=== PATIENT | male | born 1950 | race Caucasian/White ===

== ENCOUNTER → 2017-08-29 10:47 | Outpatient (CLI) | payer MEDICARE, SELFPAY ==
[2017-08-29 13:41] LABS: Blood Urea Nitrogen 18 mg/dL (7-18); Chloride 93 mmol/L (98-107); Creatinine,Serum 0.99 mg/dL (0.70-1.30); Estimated Glomerular Filt Rate 75 ml/min (>60); GFR (African American) 91 ML/MIN (>60); Glucose 137 mg/dL (74-106); Magnesium 1.5 mg/dL (1.4-2.2); Potassium 3.4 mmoL/L (3.5-5.1); Sodium 139 mmol/L (136-145)
[2017-08-29 13:42] LABS: Basophils # 0.1 K/mm3 (0-0.2); Basophils % 0.7 % (0.1-2.0); Eosinophils # 0.2 K/mm3 (0.0-0.4); Eosinophils % 2.1 % (0.1-12.0); Hematocrit 45.1 % (42.0-52.0); Hemoglobin 14.6 g/dL (14.1-18.0); Lymphocytes # 2.5 K/mm3 (0.7-4.5); Lymphocytes % 25.2 K/mm3 (10-50); Mean Corpuscular HGB Conc 32.4 g/dL (31.8-35.4); Mean Corpuscular Hemoglobin 29.6 pg (27.0-31.2); Mean Corpuscular Volume 91.4 fl (80-94); Mean Platelet Volume 9.7 fl (7.4-10.4); Monocytes # 0.5 K/mm3 (0.1-1.0); Monocytes % 4.8 % (1.7-9.3); Neutrophils # 6.6 K/mm3 (1.8-7.8); Neutrophils % 67.2 % (37.0-80.0); Platelet Count 261 K/mm3 (142-424); Red Blood Count 4.93 M/mm3 (4.60-6.20); Red Cell Distribution Width 13.1 % (11.5-17.5); White Blood Count 9.8 K/mm3 (4.8-10.8)
[2017-08-29 13:46] LABS: Anion Gap 5.4 mEq/L (5-15)
[2017-08-29 14:05] LABS: Carbon Dioxide 44 mmol/L (21.0-32.0)
== END ==
PROVIDERS: PCP Internal Medicine Adolescent Medicine; Visit Provider Internal Medicine Adolescent Medicine
DX: I50.33 Acute on chronic diastolic (congestive) heart failure (principal)
CPT/HCPCS: 36415; 80048; 83735; 83880; 85025

== ENCOUNTER 2017-11-24 11:35 | Inpatient (IN) ==
[2017-11-24 11:56] LABS: Basophils # 0.1 K/mm3 (0-0.2); Basophils % 0.7 % (0.1-2.0); Eosinophils # 0.2 K/mm3 (0.0-0.4); Eosinophils % 1.3 % (0.1-12.0); Hematocrit 37.4 % (42.0-52.0); Lymphocytes # 2.9 K/mm3 (0.7-4.5); Lymphocytes % 24.8 K/mm3 (10-50); Mean Corpuscular HGB Conc 32.1 g/dL (31.8-35.4); Mean Corpuscular Hemoglobin 30.7 pg (27.0-31.2); Mean Corpuscular Volume 95.7 fl (80-94); Mean Platelet Volume 9.1 fl (7.4-10.4); Monocytes # 0.6 K/mm3 (0.1-1.0); Monocytes % 5.5 % (1.7-9.3); Neutrophils # 7.9 K/mm3 (1.8-7.8); Neutrophils % 67.8 % (37.0-80.0); Platelet Count 196 K/mm3 (142-424); Red Blood Count 3.91 M/mm3 (4.60-6.20); Red Cell Distribution Width 13.7 % (11.5-17.5); White Blood Count 11.7 K/mm3 (4.8-10.8)
[2017-11-24 12:21] LABS: Alanine Aminotransferase 16 U/L (12-78); Albumin/Globulin Ratio 0.8 (1.1-1.8); Alkaline Phosphatase 84 U/L (46-116); Aspartate Amino Transferase 13 U/L (15-37); Bilirubin,Total 0.3 mg/dL (0.2-1.0); Blood Urea Nitrogen 41 mg/dL (7-18); Calcium 9.2 mg/dL (8.5-10.1); Chloride 95 mmol/L (98-107); Glucose 118 mg/dL (74-106); Sodium 141 mmol/L (136-145)
--- NOTE | 2017-11-24 12:25 | Emergency Department Note ---
ED Disposition Clinical Impression: COPD exacerbation Acute respiratory failure Qualifiers: Respiratory failure complication: hypercapnia Qualified Code(s): J96.02 - Acute respiratory failure with hypercapnia Disposition: Still a Patient Condition on Discharge: Fair Referrals: Jalen Balderas MD [Primary Care Provider] - - Critical Care Critical Care Time: Yes Attestation: On 11/24/17, the high probability of a clinically significant, sudden or life threatening deterioration of the following system(s) required my full and direct attention, intervention and personal management. The time I documented below is in addition to time spent performing reported procedures but includes the following listed in this critical care notation. Total Critical Care Time: 36 Vital system(s) involved:: Respiratory Failure My critical care processes included: Assessment & monitoring of V/S, Initial and Re-exams, Data Review/Interpretation, Coordinating Care, Medication Orders and management, Documentation Medical Decision Making - Alex Inquiry Pt receiving controlled substance: No Vital Signs: 11/24/17 11:36 Temperature 98.0 F Temperature Source Oral Pulse Rate [Right Brachial] 57 L Respiratory Rate 26 H Blood Pressure [Right Arm] 119/69 Blood Pressure Mean [Right Arm] 85 Blood Pressure Source [Right Arm] Automatic Cuff Blood Pressure Position [Right Arm] Sitting 02 Sat by Pulse Oximetry 97 Oxygen Delivery Method Nasal Cannula Oxygen Flow Rate (LPM) 3 - Lab Data Lab Results 11/24/17 11:30: WBC 11.7 H, RBC 3.91 L, Hgb 12.0 L, Hct 37.4 L, MCV 95.7 H, MCH 30.7, MCHC 32.1, RDW 13.7, Plt Count 196, MPV 9.1, Neut % (Auto) 67.8, Lymph % ( Auto) 24.8, [place] % (Auto) 5.5, Eos % (Auto) 1.3, Baso % (Auto) 0.7, Neut # (Auto ) 7.9 H, Lymph # (Auto) 2.9, [place] # (Auto) 0.6, Eos # (Auto) 0.2, Baso # (Auto) 0.1 11/24/17 11:30: Sodium 141, Potassium 4.0, Chloride 95 L, Carbon Dioxide 48 H*, Anion Gap 2.0 L, BUN 41 H, Creatinine 1.35 H, Estimated Creat Clear 52, Estimated GFR 52 L, Est GFR ( Amer) 63, Glucose 118 H, Calcium 9.2, Total Bilirubin 0.3, AST 13 L, ALT 16, Alkaline Phosphatase 84, Troponin I < 0.02, Total Protein 7.0, Albumin 3.0 L, Globulin 4.0 H, Albumin/Globulin Ratio 0.8 L 11/24/17 11:30: B-Natriuretic Peptide 47 11/24/17 11:50: Specimen Source R radial, O2 % 3lpm, ABG pH 7.28 L, ABG pCO2 122.1 H, ABG pO2 126.7 H, ABG HCO3 55.7 H, ABG Total CO2 59.4 H, ABG O2 Saturation 98, ABG Base Excess 28.9 H, [place] Test Acceptable Result diagrams: 11/24/17 11:30 11/24/17 11:30 - Radiology Data #1 Image(s): Chest Image Reviewed: Yes I have reviewed radiologist's interpretation No acute process - ECG Data Tracing #1 EKG interpreted by Mannie Fry MD: Rhythm: sinus bradycardia Rate: 56 [place]: normal Ectopy: none Conduction: normal ST Segment Changes: none T Wave Changes: none Q Waves: none No evidence of acute ischemia or injury Medical Decision Narrative: 1:15 PM: I have discussed the case with Rosamaria for Dr. Balderas who agrees to admit the patient to the hospital. We discussed the patient's clinical information, including history, exam, laboratory and radiology results and ED course. Per hospital procedure, I will write temporary bridge inpatient orders on the patient. Specific orders requested by the admitting physician: Continue BiPAP, nebulizer treatments, steroids General Adult HPI - General Chief complaint: Shortness of Breath/Dyspnea Stated complaint: soa Time Seen by Provider: 11/24/17 12:15 Mode of Arrival: EMS Limitations: No Limitations Description of Symptoms (Recalled from ER Triage Doc. by RN): shortness of air for 3 days - History of Present Illness HPI narrative: Brought in by ambulance for shortness of breath. States he has had shortness of breath "for a long time" but states he is worse for the past 2-3 days. No chest pain or cough or fever. Some wheezing. States breathing treatments are not helping him much. He is on oxygen 2.5-3 L at home. He says they "checked it up today". In the emergency room he is currently on 2.5 L with saturation of 94%. States has increased swelling of his legs for several days. Former smoker. Primary care provider is Dr. Balderas. - Related Data Allergies Allergy/AdvReac Type Severity Reaction Status Date / Time No Known Allergies Allergy Unverified 07/04/17 14:56 [facility] History I have reviewed the patient's past medical history: Yes - Social History Educational Level: Completed High School Smoking Status: Former smoker Tobacco Type: cigarettes Alcohol Intake: never - Psychiatric History Expresses thoughts of harming self/others: None Suicide Plan Description: No Plan ROS Obtained: Yes All systems reviewed & no additional complaints - Constitutional Constitutional: Denies fever(s) - Cardiovascular Cardiovascular: Denies chest pain, Reports leg edema - Respiratory Respiratory: No cough, Yes dyspnea, Yes wheezing Physical Exam - General General appearance: alert, in distress (Mild respiratory distress, tachypneic) - Head Head exam: atraumatic, normocephalic, normal inspection - Eye Eye exam: Present: normal appearance, PERRL, EOMI - ENT ENT exam: Present: normal exam, normal oropharynx, mucous membranes moist, TM's normal bilaterally, normal external ear exam - Neck Neck exam: Present: normal inspection, full ROM, trachea midline. Absent: meningismus, lymphadenopathy - Chest Chest inspection: Present: normal inspection, symmetric chest wall rise. Absent : tenderness - Respiratory Respiratory exam: Present: other (Decreased breath sounds bilaterally). Absent : respiratory distress - Cardiovascular Cardiovascular exam: Present: regular rate, normal rhythm. Absent: JVD - Abdominal Exam Abdominal exam: Present: soft, normal bowel sounds. Absent: distention, tenderness, guarding - Extremities Exam Extremities exam: Present: normal inspection, full ROM, normal capillary refill. Absent: calf tenderness - Back Exam Back exam: Present: normal inspection. Absent: tenderness - Neurological Exam Neurological exam: Present: alert, oriented X3 - Psychiatric Psychiatric exam: Present: normal affect, normal mood - Skin Skin exam: Present: warm, dry, intact, normal color - Lymphatic Lymphatic Findings: no adenopathy - Other Other exam information: 1+ pitting edema of legs and feet
[2017-11-24 12:26] LABS: Carbon Dioxide 48 mmol/L (21.0-32.0)
[2017-11-24 12:34] LABS: ABG Base Excess 28.9 mmol/L (-2.4-2.3); ABG HCO3 55.7 mmhg (22.0-26.0); ABG Oxygen Saturation 98 % (90-100); ABG PH 7.28 mmol/L (7.35-7.45); ABG PO2 126.7 mmhg (80-100); ABG TCO2 59.4 mmhg (23-27)
[2017-11-24 12:38] LABS: Allen's Test ACCEPTABLE
[2017-11-24 12:39] LABS: ABG PCO2 122.1 mmhg (35.0-45.0)
--- NOTE | 2017-11-24 13:35 | Pharmacy Consult Notes ---
[facility] Pharmacy VTE Monitoring - Patient Demographics Admission date: 11/24/17 Report Date: 11/24/17 Time: 13:34 Allergies/Adverse Reactions: Patient Allergies No Known Allergies Allergy (Verified 11/24/17 13:27) Height: 1.75 m Weight: 136.078 kg Patient Problems: Current Active Problems Acute respiratory failure (Acute) COPD exacerbation (Acute) - VTE Risk Labs: VTE Related Lab Results Hgb 12.0 g/dL (14.1-18.0) L 11/24/17 11:30 Hct 37.4 % (42.0-52.0) L 11/24/17 11:30 Plt Count 196 K/mm3 (142-424) 11/24/17 11:30 BUN 41 mg/dL (7-18) H 11/24/17 11:30 Creatinine 1.35 mg/dL (0.70-1.30) H 11/24/17 11:30 Estimated Creat Clear 52 mL/min (0-300) 11/24/17 11:30 Clinical Trial Participant: No - Prophylaxis VTE Prophylaxis Ordered?: Yes Types of VTE Prophylaxis: TEDS Knee High
[2017-11-24 17:57] LABS: ABG Base Excess 23.3 mmol/L (-2.4-2.3); ABG HCO3 49.1 mmhg (22.0-26.0); ABG Oxygen Saturation 95 % (90-100); ABG PH 7.34 mmol/L (7.35-7.45); ABG PO2 76.7 mmhg (80-100)
[2017-11-24 18:02] LABS: Allen's Test ACCEPTABLE; Oxygen 36 %
[2017-11-24 18:03] LABS: ABG PCO2 94.2 mmhg (35.0-45.0)
[2017-11-25 06:41] LABS: Basophils % 0.1 % (0.1-2.0); Eosinophils % 0.3 % (0.1-12.0); Hematocrit 38.6 % (42.0-52.0); Hemoglobin 12.5 g/dL (14.1-18.0); Lymphocytes # 1.1 K/mm3 (0.7-4.5); Mean Corpuscular HGB Conc 32.4 g/dL (31.8-35.4); Mean Corpuscular Hemoglobin 30.7 pg (27.0-31.2); Mean Corpuscular Volume 94.9 fl (80-94); Mean Platelet Volume 8.9 fl (7.4-10.4); Monocytes # 0.2 K/mm3 (0.1-1.0); Monocytes % 1.7 % (1.7-9.3); Neutrophils # 12.1 K/mm3 (1.8-7.8); Neutrophils % 89.9 % (37.0-80.0); Platelet Count 204 K/mm3 (142-424); Red Blood Count 4.07 M/mm3 (4.60-6.20); Red Cell Distribution Width 13.5 % (11.5-17.5); White Blood Count 13.4 K/mm3 (4.8-10.8)
[2017-11-25 06:43] LABS: ABG Base Excess 22.9 mmol/L (-2.4-2.3); ABG HCO3 48.5 mmhg (22.0-26.0); ABG Oxygen Saturation 95 % (90-100); ABG PH 7.35 mmol/L (7.35-7.45); ABG PO2 81.2 mmhg (80-100); ABG TCO2 51.2 mmhg (23-27)
[2017-11-25 06:47] LABS: Allen's Test Acceptable; Oxygen 36% %
[2017-11-25 06:48] LABS: ABG PCO2 89.6 mmhg (35.0-45.0)
[2017-11-25 06:48] LABS: Potassium 4.2 mmoL/L (3.5-5.1)
[2017-11-25 07:15] LABS: Anion Gap -2.8 mEq/L (5-15)
--- NOTE | 2017-11-25 08:46 | History & Physical Report ---
*Admission Date: 11/24/17 *Chief complaint: Shortness of breath *History of present illness: 67 yr old male presented to the ED yesterday with increasing shortness of breath and edema. He has a long history of COPD, oxygen dependent, as well as CO2 retention but hasn't been able to tolerate CPAP in the past. He reports that he had turned his oxygen up to 3 liters at home but this did not improve his symptoms. In the ED he was found to be in hypercapnic respiratory failure with PCO2 122 and PH 7.28. He was placed on Bipap and admitted for management. BNP was unremarkable, renal function slightly elevated at 1.35. WBC also slightly elevated at 11.7K. [facility] History I have reviewed the patient's past medical history: Yes Medical History: Reports:: Congestive Heart Failure, Chronic Obstructive Pulmonary Disease (COPD), Home Oxygen, Hypertension, Peripheral Vascular Disease Denies:: Cancer, Diabetes Mellitus Type 1, Diabetes Mellitus Type 2, MRSA Laterality Cases: Bilateral: Other Other Surgeries: Yes: Cardiac Catheterization Amputation: No Fractures: No - *Social History Educational Level: Attended High School Smoking Status: Former smoker Tobacco Type: cigarettes Alcohol Intake: former Substance Use Type: former substance user, marijuana, crack/cocaine Last Used Substance: unknown Occupational Status: disabled Housing: house - Psychiatric History Expresses thoughts of harming self/others: None Suicide Plan Description: No Plan *Family Hx:: No significant family history, Non-contributory Review of Systems - Review of Systems Review of systems:: pertinent systems reviewed and negative unless documented below - Constitutional Reports fatigue - *Cardiovascular Reports shortness of breath, Reports leg swelling, Reports shortness of breath when lying down, Denies chest pain - *Respiratory Reports cough, Reports shortness of breath Meds Home Medications Medication Instructions Recorded Confirmed Type Acetaminophen with Codeine 1 tab PO TID PRN 11/24/17 11/24/17 History [Tylenol with Codeine #3 tablet] Carvedilol [Carvedilol 12.5mg Tab] 12.5 mg PO BID 11/24/17 11/24/17 History Diclofenac Potassium [Diclofenac 50 mg PO DAILY 11/24/17 11/24/17 History 50mg Tab] Furosemide [Furosemide 40MG tAB] 40 mg PO BID 11/24/17 11/24/17 History Gabapentin [Neurontin 600mg 600 mg PO TID 11/24/17 11/24/17 History tablet] Sacubitril/Valsartan [Entresto 1 tab PO BID 11/24/17 11/24/17 History 24/26mg Tablet] Spironolactone [Spironolactone 50 mg PO DAILY 11/24/17 11/24/17 History 50mg Tab] Allergies Allergy/AdvReac Type Severity Reaction Status Date / Time No Known Allergies Allergy Verified 11/24/17 13:27 Exam Vital signs and Labs for Last 24 Hours: Temp Pulse Resp BP Pulse Ox 97.6 F 73 20 128/69 93 L 11/25/17 07:15 11/25/17 07:15 11/25/17 07:15 11/25/17 07:15 11/25/17 07:15 Laboratory Results - last 24 hr 11/24/17 11:30: WBC 11.7 H, RBC 3.91 L, Hgb 12.0 L, Hct 37.4 L, MCV 95.7 H, MCH 30.7, MCHC 32.1, RDW 13.7, Plt Count 196, MPV 9.1, Neut % (Auto) 67.8, Lymph % ( Auto) 24.8, [place] % (Auto) 5.5, Eos % (Auto) 1.3, Baso % (Auto) 0.7, Neut # (Auto ) 7.9 H, Lymph # (Auto) 2.9, [place] # (Auto) 0.6, Eos # (Auto) 0.2, Baso # (Auto) 0.1 11/24/17 11:30: Sodium 141, Potassium 4.0, Chloride 95 L, Carbon Dioxide 48 H*, Anion Gap 2.0 L, BUN 41 H, Creatinine 1.35 H, Estimated Creat Clear 52, Estimated GFR 52 L, Est GFR ( Amer) 63, Glucose 118 H, Calcium 9.2, Total Bilirubin 0.3, AST 13 L, ALT 16, Alkaline Phosphatase 84, Troponin I < 0.02, Total Protein 7.0, Albumin 3.0 L, Globulin 4.0 H, Albumin/Globulin Ratio 0.8 L 11/24/17 11:30: B-Natriuretic Peptide 47 11/24/17 11:50: Specimen Source R radial, O2 % 3lpm, ABG pH 7.28 L, ABG pCO2 122.1 H, ABG pO2 126.7 H, ABG HCO3 55.7 H, ABG Total CO2 59.4 H, ABG O2 Saturation 98, ABG Base Excess 28.9 H, [place] Test Acceptable 11/24/17 18:00: Specimen Source Right radial, O2 % 36, ABG pH 7.34 L, ABG pCO2 94.2 H, ABG pO2 76.7 L, ABG HCO3 49.1 H, ABG Total CO2 52.0 H, ABG O2 Saturation 95, ABG Base Excess 23.3 H, [place] Test Acceptable 11/25/17 06:00: WBC 13.4 H, RBC 4.07 L, Hgb 12.5 L, Hct 38.6 L, MCV 94.9 H, MCH 30.7, MCHC 32.4, RDW 13.5, Plt Count 204, MPV 8.9, Neut % (Auto) 89.9 H, Lymph % (Auto) 8.0 L, [place] % (Auto) 1.7, Eos % (Auto) 0.3, Baso % (Auto) 0.1, Neut # ( Auto) 12.1 H, Lymph # (Auto) 1.1, [place] # (Auto) 0.2, Eos # (Auto) 0.0, Baso # ( Auto) 0.0 11/25/17 06:00: Sodium 140, Potassium 4.2, Chloride 95 L, Carbon Dioxide 52 H*, Anion Gap -2.8 L, BUN 46 H, Creatinine 1.05 D, Estimated Creat Clear 66, Estimated GFR 70, Est GFR ( Amer) 85 D, Glucose 153 H D 11/25/17 06:10: Specimen Source Left radial, O2 % 36%, ABG pH 7.35, ABG pCO2 89.6 H, ABG pO2 81.2, ABG HCO3 48.5 H, ABG Total CO2 51.2 H, ABG O2 Saturation 95, ABG Base Excess 22.9 H, [place] Test Acceptable I & O for Last 24 hours: Intake & Output 11/22/17 11/23/17 11/24/17 11/25/17 11:59 11:59 11:59 11:59 Intake Total 1200 / 1200 Output Total 1750 / 1750 Balance -550 / -550 Weight 300 lb 320 lb 12.361 oz Microbiology Reports for the Last 24 Hours: Microbiology 11/25/17 06:05 Sputum - Expectorated Sputum Gram Stain - Final Narrative: Pleasant male, up on side of bed in no distress. Oxygen by nasal cannula. He does have moderate conversational dyspnea. Oral membranes are moist, neck supple. Heart with RRR, distant. Lungs are clear but diffusely diminished. Abdomen is obese, soft, NT/ND, BS present and normal. Legs are edematous, left worse than right with 2+ edema, soft and without erythema. Alert and oriented x 3 with normal recall and conversation. H&P: Result - Labs Labs: Short CBC 11/24/17 11/25/17 Range/Units 11:30 06:00 WBC 11.7 H 13.4 H (4.8-10.8) K/mm3 Hgb 12.0 L 12.5 L (14.1-18.0) g/dL Hct 37.4 L 38.6 L (42.0-52.0) % Plt Count 196 204 (142-424) K/mm3 BMP 11/24/17 11/25/17 11:30 06:00 Sodium 141 140 Potassium 4.0 4.2 Chloride 95 L 95 L Carbon Dioxide 48 H* 52 H* BUN 41 H 46 H Creatinine 1.35 H 1.05 D Glucose 118 H 153 H D Calcium 9.2 Cardiac Enzymes 11/24/17 Range/Units 11:30 Troponin I < 0.02 (0.00-0.06) ng/ml Liver Function 11/24/17 Range/Units 11:30 Total Bilirubin 0.3 (0.2-1.0) mg/dL AST 13 L (15-37) U/L ALT 16 (12-78) U/L Alkaline Phosphatase 84 (46-116) U/L Albumin 3.0 L (3.4-5.0) gm/dL Assessment and Plan (1) Hypercapnic respiratory failure Current visit: Yes Status: Acute Category: Medical Code(s): J96.92 - Respiratory failure, unspecified with hypercapnia (2) Chronic combined systolic and diastolic CHF (congestive heart failure) Current visit: Yes Status: Acute Category: Medical Code(s): I50.42 - Chronic combined systolic (congestive) and diastolic (congestive) heart failure (3) AAMIR (acute kidney injury) Current visit: Yes Status: Acute Category: Medical Code(s): N17.9 - Acute kidney failure, unspecified (4) Leukocytosis Current visit: Yes Status: Acute Category: Medical Code(s): D72.829 - Elevated white blood cell count, unspecified (5) Peripheral edema Current visit: Yes Status: Acute Category: Medical Code(s): R60.9 - Edema , unspecified (6) COPD exacerbation Current visit: Yes Status: Acute Category: Medical Code(s): J44.1 - Chronic obstructive pulmonary disease with (acute) exacerbation - Assessment and plan all Dx Assessment and Plan for all problems:: ABG significantly improved this morning after using Bipap overnight. Continue Bipap while sleeping and as needed. Wean oxygen back to 2L NC as tolerated today. He had 80mg IV lasix yesterday with good results, renal function this morning is improved since admission - will repeat lasix 80mg IV today. Hold NSAIDS (taking diclofenac at home). Continue Entresto and home diuretics IV Solumedrol for COPD exacerbation. Sputum culture ordered. CXR is negative for acute process.
[2017-11-25 11:55] LABS: Lymphocytes % 3 % (10-50); Monocytes % 9 % (2-9); Neutrophils % 88 % (42-76); Total Cells Counted 100
[2017-11-25 11:56] LABS: Stomatocytes 1+
[2017-11-26 06:52] LABS: Eosinophils % 0.1 % (0.1-12.0); Hematocrit 37.4 % (42.0-52.0); Hemoglobin 12.1 g/dL (14.1-18.0); Lymphocytes # 1.4 K/mm3 (0.7-4.5); Lymphocytes % 7.5 K/mm3 (10-50); Mean Corpuscular HGB Conc 32.4 g/dL (31.8-35.4); Mean Corpuscular Hemoglobin 30.4 pg (27.0-31.2); Mean Corpuscular Volume 93.9 fl (80-94); Mean Platelet Volume 9.2 fl (7.4-10.4); Monocytes # 0.4 K/mm3 (0.1-1.0); Monocytes % 2.4 % (1.7-9.3); Neutrophils # 16.4 K/mm3 (1.8-7.8); Neutrophils % 89.9 % (37.0-80.0); Platelet Count 214 K/mm3 (142-424); Red Blood Count 3.98 M/mm3 (4.60-6.20); Red Cell Distribution Width 13.7 % (11.5-17.5); White Blood Count 18.2 K/mm3 (4.8-10.8)
[2017-11-26 07:07] LABS: Lymphocytes % 9 % (10-50); Monocytes % 1 % (2-9); Neutrophils % 80 % (42-76); Polychromasia 1+; Total Cells Counted 100
[2017-11-26 07:08] LABS: Potassium 3.9 mmoL/L (3.5-5.1)
[2017-11-26 07:12] LABS: Anion Gap 1.9 mEq/L (5-15)
--- NOTE | 2017-11-26 08:33 | Progress Note ---
Internal Medicine - PN: Subj *Date: 11/26/17 *Time: 08:32 Interval history: Overall patient feels better, slept comfortably on BiPAP. This morning has improving edema. Urinating well. Exam Vital signs and Labs for Last 24 Hours: Temp Pulse Resp BP Pulse Ox 97.6 F 85 20 111/64 94 L 11/26/17 07:22 11/26/17 07:22 11/26/17 07:22 11/26/17 07:22 11/26/17 07:22 Laboratory Results - last 24 hr 11/25/17 06:00: Total Counted 100, Neutrophils % (Manual) 88 H, Lymphocytes % ( Manual) 3 L, Monocytes % (Manual) 9, Platelet Estimate Normal, Stomatocytes 1+ 11/26/17 06:05: WBC 18.2 H D, RBC 3.98 L, Hgb 12.1 L, Hct 37.4 L, MCV 93.9, MCH 30.4, MCHC 32.4, RDW 13.7, Plt Count 214, MPV 9.2, Neut % (Auto) 89.9 H, Lymph % (Auto) 7.5 L, [place] % (Auto) 2.4, Eos % (Auto) 0.1, Baso % (Auto) 0.0 L, Neut # (Auto) 16.4 H, Lymph # (Auto) 1.4, [place] # (Auto) 0.4, Eos # (Auto) 0.0, Baso # (Auto) 0.0, Total Counted 100, Neutrophils % (Manual) 80 H, Band Neutrophils % 10.0 H, Lymphocytes % (Manual) 9 L, Monocytes % (Manual) 1 L, Platelet Estimate Normal, Polychromasia 1+ 11/26/17 06:05: Sodium 140, Potassium 3.9, Chloride 96 L, Carbon Dioxide 46 H*, Anion Gap 1.9 L, BUN 42 H, Creatinine 1.02, Estimated Creat Clear 68, Estimated GFR 72, Est GFR ( Amer) 88, Glucose 140 H I & O for Last 24 hours: Intake & Output 11/23/17 11/24/17 11/25/17 11/26/17 11:59 11:59 11:59 11:59 Intake Total 1200 / 1200 600 / 600 Output Total 1750 / 1750 1800 / 1800 Balance -550 / -550 -1200 / -1200 Weight 300 lb 320 lb 12.361 oz 323 lb 10.217 oz Microbiology Reports for the Last 24 Hours: Microbiology 11/25/17 06:05 Sputum - Expectorated Sputum Gram Stain - Final Narrative: Lungs have diffuse rhonchi but symmetric air entry. Patient's alert. Oriented. Heart rate regular. Abdomen softer. Extremities softer but still with 2+ edema to mid mooney. Assessment and Plan (1) Hypercapnic respiratory failure Current visit: Yes Status: Acute Category: Medical Code(s): J96.92 - Respiratory failure, unspecified with hypercapnia (2) Chronic combined systolic and diastolic CHF (congestive heart failure) Current visit: Yes Status: Acute Category: Medical Code(s): I50.42 - Chronic combined systolic (congestive) and diastolic (congestive) heart failure (3) AAMIR (acute kidney injury) Current visit: Yes Status: Acute Category: Medical Code(s): N17.9 - Acute kidney failure, unspecified (4) Leukocytosis Current visit: Yes Status: Acute Category: Medical Code(s): D72.829 - Elevated white blood cell count, unspecified (5) Peripheral edema Current visit: Yes Status: Acute Category: Medical Code(s): R60.9 - Edema , unspecified (6) COPD exacerbation Current visit: Yes Status: Acute Category: Medical Code(s): J44.1 - Chronic obstructive pulmonary disease with (acute) exacerbation - Assessment and plan all Dx Assessment and Plan for all problems:: Overall patient is improving. Continue BiPAP support. Continue high-dose IV Lasix. Watch kidney function carefully tomorrow. We will try to effort patient assistance so he can have BiPAP at home.
[2017-11-27 05:42] LABS: Basophils % 0.1 % (0.1-2.0); Eosinophils % 0.2 % (0.1-12.0); Hematocrit 37.3 % (42.0-52.0); Hemoglobin 12.3 g/dL (14.1-18.0); Lymphocytes # 1.3 K/mm3 (0.7-4.5); Lymphocytes % 8.1 K/mm3 (10-50); Mean Corpuscular HGB Conc 32.9 g/dL (31.8-35.4); Mean Corpuscular Hemoglobin 31.2 pg (27.0-31.2); Mean Corpuscular Volume 94.7 fl (80-94); Mean Platelet Volume 9.1 fl (7.4-10.4); Monocytes # 0.5 K/mm3 (0.1-1.0); Neutrophils # 13.7 K/mm3 (1.8-7.8); Neutrophils % 88.6 % (37.0-80.0); Platelet Count 205 K/mm3 (142-424); Red Blood Count 3.94 M/mm3 (4.60-6.20); Red Cell Distribution Width 13.6 % (11.5-17.5); White Blood Count 15.4 K/mm3 (4.8-10.8)
[2017-11-27 05:56] LABS: Albumin/Globulin Ratio 0.8 (1.1-1.8); Bilirubin,Total 0.2 mg/dL (0.2-1.0); Calcium 9.1 mg/dL (8.5-10.1); Globulin 3.8 gm/dl (1.3-3.2); Lymphocytes % 14 % (10-50); Neutrophils % 83 % (42-76); Potassium 3.4 mmoL/L (3.5-5.1); RBC Morphology Normal; Total Cells Counted 100; Total Protein,Serum 6.8 gm/dL (6.4-8.2)
[2017-11-27 05:58] LABS: Anion Gap 4.4 mEq/L (5-15)
--- NOTE | 2017-11-27 07:50 | Discharge Summary ---
General - General Admission date:: 11/24/17 Discharge date: 11/27/17 HPI HPI: 67 yr old male presented to the ED yesterday with increasing shortness of breath and edema. He has a long history of COPD, oxygen dependent, as well as CO2 retention but hasn't been able to tolerate CPAP in the past. He reports that he had turned his oxygen up to 3 liters at home but this did not improve his symptoms. In the ED he was found to be in hypercapnic respiratory failure with PCO2 122 and PH 7.28. He was placed on Bipap and admitted for management. BNP was unremarkable, renal function slightly elevated at 1.35. WBC also slightly elevated at 11.7K. Hospital Course Hospital Course: Patient was admitted, laboratory studies were done showing minimally elevated white count, and slightly elevated creatinine. Patient was diuresed and placed on BiPAP which improved his pulmonary functioning and also improved his ability to diurese and he diuresed about 6 L over the next couple of days. His creatinine also improved, coming down from 1.4 down to 1.13 which is closer to his baseline. Patient did well on BiPAP at night. Patient has been prescribed BiPAP at home after a couple of abnormal sleep studies, both in [place], [place] as well as here at [facility] several years ago but his insurance requires him to pay 20% co-pay on his BiPAP equipment and he has been unable to afford this. Sputum culture this morning shows Haemophilus influenza, sensitive to cephalosporins. Patient this morning is improved, back to his baseline, improved edema and improved pulmonary function. He will be discharged home with efforts by our care management staff to provide BiPAP at home hopefully with a lower cost. He will also be continued on his Lasix, 80 mg in the morning and 40 mg in the afternoon. Omnicef will be given for his Haemophilus bronchopneumonia. Objective Vital signs: Temp Pulse Resp BP Pulse Ox 97.7 F 78 18 136/70 86 L 11/27/17 07:22 11/27/17 07:22 11/27/17 07:22 11/27/17 07:22 11/27/17 07:22 Narrative: Patient is awake, alert, oriented 3. Anterior lung wood and posterior wood have much better air entry. Mild rhonchi. No crackles. Heart rate is regular. Exam is very difficult because of his morbid obesity and pickwickian features. Extremities are softer, continues to have edema but this is downgraded to 1+ after significant diuresis. Results Labs on day of discharge: Labs from last 24 hours 11/27/17 11/27/17 05:15 05:15 WBC 15.4 H RBC 3.94 L Hgb 12.3 L Hct 37.3 L MCV 94.7 H MCH 31.2 MCHC 32.9 RDW 13.6 Plt Count 205 MPV 9.1 Neut % (Auto) 88.6 H Lymph % (Auto) 8.1 L [place] % (Auto) 3.0 Eos % (Auto) 0.2 Baso % (Auto) 0.1 Neut # (Auto) 13.7 H Lymph # (Auto) 1.3 [place] # (Auto) 0.5 Eos # (Auto) 0.0 Baso # (Auto) 0.0 Total Counted 100 Neutrophils % (Manual) 83 H Band Neutrophils % 3.0 Lymphocytes % (Manual) 14 Platelet Estimate Normal RBC Morphology Normal Sodium 141 Potassium 3.4 L Chloride 94 L Carbon Dioxide 46 H* Anion Gap 4.4 L BUN 45 H Creatinine 1.15 Estimated Creat Clear 61 Estimated GFR 63 Est GFR ( Amer) 76 Glucose 146 H Calcium 9.1 Total Bilirubin 0.2 AST 14 L ALT 22 D Alkaline Phosphatase 89 Total Protein 6.8 Albumin 3.0 L Globulin 3.8 H Albumin/Globulin Ratio 0.8 L DS: Diagnosis - Discharge Diagnosis (1) Hypercapnic respiratory failure Status: Acute (2) Chronic combined systolic and diastolic CHF (congestive heart failure) Status: Acute (3) AAMIR (acute kidney injury) Status: Resolved (4) Leukocytosis Status: Acute (5) Peripheral edema Status: Acute (6) COPD exacerbation Status: Acute (7) Haemophilus influenzae pneumonia Status: Acute Discharge Plan - Patient Discharge Instructions ACTIVITY: Continue current activity DIET: continue same diet Patient Instructions: Chronic Obstructive Pulmonary Disease, Respiratory Failure - Follow up Plan Disposition: Home Health Service Home Medications: Home Medications Medication Instructions Recorded Confirmed Type Acetaminophen with Codeine 1 tab PO TIDP PRN 11/24/17 11/25/17 History [Tylenol with Codeine #3 tablet] Carvedilol [Carvedilol 12.5mg Tab] 12.5 mg PO BID 11/24/17 11/24/17 History Diclofenac Potassium [Diclofenac 50 mg PO DAILY 11/24/17 11/24/17 History 50mg Tab] Gabapentin [Neurontin 600mg 600 mg PO TID 11/24/17 11/24/17 History tablet] Sacubitril/Valsartan [Entresto 1 tab PO BID 11/24/17 11/24/17 History 24/26mg Tablet] Spironolactone [Spironolactone 50 mg PO BID 11/24/17 11/25/17 History 50mg Tab] Prescriptions/Medication Reconciliation: New Cefdinir [Omnicef 300mg Capsule] 300 mg PO BID #14 cap Continue Spironolactone [Spironolactone 50mg Tab] 50 mg PO BID Gabapentin [Neurontin 600mg tablet] 600 mg PO TID Diclofenac Potassium [Diclofenac 50mg Tab] 50 mg PO DAILY Carvedilol [Carvedilol 12.5mg Tab] 12.5 mg PO BID Acetaminophen with Codeine [Tylenol with Codeine #3 tablet] 1 tab PO TIDP PRN PRN Reason: PAIN Sacubitril/Valsartan [Entresto 24/26mg Tablet] 1 tab PO BID Furosemide [Furosemide 40MG tAB] 40 mg PO BID #90 tablet
== END 2017-11-27 11:35 | disposition home health service (06) ==
LOC: ER 11:35 → 2ND 13:21
PROVIDERS: ADMIT Internal Medicine Adolescent Medicine; ATTEND Internal Medicine Adolescent Medicine

== ENCOUNTER 2018-01-07 19:07 | Inpatient (IN) ==
[2018-01-07 19:32] LABS: Basophils # 0.1 K/mm3 (0-0.2); Basophils % 0.3 % (0.1-2.0); Eosinophils # 0.1 K/mm3 (0.0-0.4); Eosinophils % 0.8 % (0.1-12.0); Hematocrit 34.5 % (42.0-52.0); Hemoglobin 11.8 g/dL (14.1-18.0); Lymphocytes # 1.1 K/mm3 (0.7-4.5); Lymphocytes % 6.5 K/mm3 (10-50); Mean Corpuscular HGB Conc 34.2 g/dL (31.8-35.4); Mean Corpuscular Hemoglobin 33.4 pg (27.0-31.2); Mean Corpuscular Volume 97.9 fl (80-94); Monocytes # 0.8 K/mm3 (0.1-1.0); Monocytes % 4.7 % (1.7-9.3); Neutrophils # 14.5 K/mm3 (1.8-7.8); Neutrophils % 87.7 % (37.0-80.0); Platelet Count 236 K/mm3 (142-424); Red Blood Count 3.52 M/mm3 (4.60-6.20); Red Cell Distribution Width 13.4 % (11.5-17.5); White Blood Count 16.6 K/mm3 (4.8-10.8)
[2018-01-07 19:34] LABS: ABG HCO3 38.3 mmhg (22.0-26.0); ABG Oxygen Saturation 91 % (90-100); ABG PH 7.25 mmol/L (7.35-7.45); ABG PO2 63.5 mmhg (80-100); ABG TCO2 41.1 mmhg (23-27)
[2018-01-07 19:35] LABS: Oxygen 3 %
[2018-01-07 19:36] LABS: ABG PCO2 90.2 mmhg (35.0-45.0); Allen's Test Y
--- NOTE | 2018-01-07 19:37 | Emergency Department Note ---
ED Disposition Clinical Impression: Acute exacerbation of chronic obstructive airways disease, Overweight Congestive heart failure Qualifiers: Heart failure type: unspecified Heart failure chronicity: acute on chronic Qualified Code(s): I50.9 - Heart failure, unspecified Acute respiratory failure Qualifiers: Respiratory failure complication: hypercapnia Qualified Code(s): J96.02 - Acute respiratory failure with hypercapnia Leukocytosis Qualifiers: Leukocytosis type: unspecified Qualified Code(s): D72.829 - Elevated white blood cell count, unspecified Disposition: Admitted As Inpatient Condition on Discharge: Serious Referrals: Jalen Balderas MD [Primary Care Provider] - - Critical Care Critical Care Time: Yes Attestation: On 01/07/18, the high probability of a clinically significant, sudden or life threatening deterioration of the following system(s) required my full and direct attention, intervention and personal management. The time I documented below is in addition to time spent performing reported procedures but includes the following listed in this critical care notation. Vital system(s) involved:: Respiratory Failure My critical care processes included: Assessment & monitoring of V/S, Medication Orders and management, Documentation Medical Decision Making - Medical Records Medical records reviewed: Yes: I reviewed the patient's medical records. - Alex Inquiry Pt receiving controlled substance: No Vital Signs: 01/07/18 19:08 01/07/18 19:37 01/07/18 19:41 Temperature 99.1 F 99.9 F H Temperature Source Oral Oral Pulse Rate [Right Brachial] 77 84 66 Respiratory Rate 24 22 24 Blood Pressure [Right Arm] 97/38 97/47 89/49 Blood Pressure Mean [Right Arm] 57 63 62 Blood Pressure Source [Right Arm] Automatic Cuff Blood Pressure Position [Right Arm] Sitting 02 Sat by Pulse Oximetry 88 L 87 L 88 L Oxygen Delivery Method Nasal Cannula Nasal Cannula Nasal Cannula Oxygen Flow Rate (LPM) 3 3 3 - Lab Data Lab results reviewed: Yes: I reviewed the patient's lab results. Lab Results 01/07/18 19:25: WBC 16.6 H, RBC 3.52 L, Hgb 11.8 L, Hct 34.5 L, MCV 97.9 H, MCH 33.4 H, MCHC 34.2, RDW 13.4, Plt Count 236, MPV 8.0, Neut % (Auto) 87.7 H, Lymph % (Auto) 6.5 L, [place] % (Auto) 4.7, Eos % (Auto) 0.8, Baso % (Auto) 0.3, Neut # (Auto) 14.5 H, Lymph # (Auto) 1.1, [place] # (Auto) 0.8, Eos # (Auto) 0.1, Baso # (Auto) 0.1 01/07/18 19:25: Sodium 140, Potassium 4.3, Chloride 99, Carbon Dioxide 36 H, Anion Gap 9.3, BUN 16, Creatinine 1.02, Estimated Creat Clear 79, Estimated GFR 72, Est GFR ( Amer) 88, Glucose 146 H, Calcium 8.7, Troponin I < 0.02 01/07/18 19:25: Lactic Acid 1.4 01/07/18 19:25: Ammonia 48 01/07/18 19:33: Specimen Source L/r, O2 % 3, ABG pH 7.25 L, ABG pCO2 90.2 H, ABG pO2 63.5 L, ABG HCO3 38.3 H, ABG Total CO2 41.1 H, ABG O2 Saturation 91, ABG Base Excess 11.0 H, [place]ug[place] Test Y 01/07/18 19:38: Urine Color Yellow, Urine Appearance Clear, Urine pH 5.5, Ur Specific [place] >= 1.030, Urine Protein 1+, Urine Glucose (UA) Negative, Urine Ketones Negative, Urine Blood Trace-l, Urine Nitrate Negative, Urine Bilirubin 1 + A, Urine Urobilinogen 1.0, Ur Leukocyte Esterase Negative Result diagrams: 01/07/18 19:25 01/07/18 19:25 Orders (Tests/Meds): ED MEDICATIONS Generic Name Dose Route Start Last Admin Trade Name Freq PRN Reason Stop Dose Admin Sodium Chloride 3 ml 01/07/18 19:42 Sodium Chloride 3% 15ml [facility] 02/06/18 19:41 ONCE PRN INDUCE SPUTUM COLLECTION Discontinued Medications Generic Name Dose Route Start Last Admin Trade Name Freq PRN Reason Stop Dose Admin Albuterol/Ipratropium 3 ml 01/07/18 19:20 01/07/18 19:39 Duoneb 3ml [facility] 01/07/18 19:21 3 ml ONCE ONE Administration Furosemide 40 mg 01/07/18 19:41 01/07/18 19:45 Lasix 40mg/4ml Vial IV 01/07/18 19:42 40 mg ONCE ONE Administration Methylprednisolone Sodium Succinate 125 mg 01/07/18 19:23 01/07/18 19:39 Solu-Medrol 125mg/2ml Vial IV 01/07/18 19:24 125 mg ONCE ONE Administration ORDERS Category Date Time Status Chest XR -- portable [XR chest portable] Stat Exams 01/07/18 19:13 Taken B-Type Natriuretic Peptide Stat Lab 01/07/18 19:25 Received Complete Blood Count Auto Diff Stat Lab 01/07/18 19:25 Results Urinalysis and Microscopic Stat Lab 01/07/18 19:38 Results Blood Culture Stat Micro 01/07/18 19:18 Received Sputum Culture & Gram Stain Stat Micro 01/07/18 19:42 Ordered Arterial Blood Gas Stat RT 01/07/18 19:18 Ordered ECG Request by /Maribeth Stat Y 01/07/18 19:13 Ordered - Radiology Data #1 Image(s): Chest Image Reviewed: Yes I reviewed the patient's radiology image Preliminary Findings: Abnormal (cm prob chf ) - ECG Data Tracing #1 I reviewed this ECG and interpreted as documented below: Normal Sinus Rhythm: Yes Ischemic changes: non-specific ST-T wave changes - Physician Consults Physician Consulted: artem Reason -: Admission Resp/SOB HPI - General Chief Complaint: Shortness of Breath/Dyspnea Stated Complaint: soa Time Seen by Provider: 01/07/18 19:15 Mode of Arrival: Wheelchair Source of Information: Patient, Relative, Medical Record Limitations: Physical Limitations Description of Symptoms (Recalled from ER Triage Doc. by RN): shortness of breath over the last couple day, gotten worse today. Pt reports that he wears 2l nc at home, arrived on 6l nc. Pt is drowsy, with very labored breathing, and audible wheezes. - History of Present Illness progressive sob over the last few days with occ sputum- tolentino colored - no chest pain MD Complaint: shortness of breath Onset (ago): day(s) Severity: moderate Consistency/Duration: constant Exacerbating factors: lying flat Known history of: COPD Associated symptoms: cough Treatment prior to arrival: oxygen - Related Data Home oxygen amount: 2 liters Home Medications Medication Instructions Recorded Confirmed Acetaminophen with Codeine 1 tab PO TIDP PRN 11/24/17 01/07/18 [Tylenol with Codeine #3 tablet] Carvedilol [Carvedilol 12.5mg Tab] 12.5 mg PO BID 11/24/17 01/07/18 Diclofenac Potassium [Diclofenac 50 mg PO DAILY 11/24/17 01/07/18 50mg Tab] Gabapentin [Neurontin 600mg 600 mg PO TID 11/24/17 01/07/18 tablet] Sacubitril/Valsartan [Entresto 1 tab PO BID 11/24/17 01/07/18 24/26mg Tablet] Spironolactone [Spironolactone 50 mg PO BID 11/24/17 01/07/18 50mg Tab] Previous Rx's Medication Instructions Recorded Furosemide [Furosemide 40MG tAB] 40 mg PO BID #90 tablet 11/27/17 Allergies Allergy/AdvReac Type Severity Reaction Status Date / Time No Known Allergies Allergy Verified 11/24/17 13:27 [facility] History I have reviewed the patient's past medical history: Yes Medical History: Reports:: Congestive Heart Failure, Chronic Obstructive Pulmonary Disease (COPD), Home Oxygen, Hypertension, Peripheral Vascular Disease Denies:: Cancer, Diabetes Mellitus Type 1, Diabetes Mellitus Type 2, MRSA Laterality Cases: Bilateral: Other Other Surgeries: Yes: Cardiac Catheterization Amputation: No Fractures: No - Social History Smoking Status: Former smoker Tobacco Type: cigarettes Alcohol Intake: never Substance Use Type: former substance user, marijuana, crack/cocaine Occupational Status: disabled Housing: house - Psychiatric History Expresses thoughts of harming self/others: None Suicide Plan Description: No Plan Family Hx:: No significant family history, Non-contributory ROS Obtained: Yes All systems reviewed & no additional complaints - Constitutional Constitutional: Denies fever(s) - Eyes Eyes: Denies change in vision - ENT Ears, Nose, Mouth, and Throat: Denies sore throat - Cardiovascular Cardiovascular: Denies chest pain - Respiratory Respiratory: Yes cough, Yes dyspnea, No coughing up blood - Gastrointestinal Gastrointestingal: Denies: abdominal pain - Genitourinary Male Genitourinary: Denies hematuria - Musculoskeletal Musculoskeletal: Denies joint pain, Denies joint swelling - Integumentary/Breasts Skin/Breast: Denies rash - Neurologic Neurologic: Denies headache(s), Denies seizure-like activity Physical Exam - General General appearance: in no apparent distress, obese - Head Head exam: atraumatic - Eye Eye exam: Present: PERRL, EOMI. Absent: scleral icterus - ENT ENT exam: Present: mucous membranes dry - Neck Neck exam: Present: trachea midline - Respiratory Respiratory exam: Present: other (dec bs bilat ). Absent: respiratory distress - Cardiovascular Cardiovascular exam: Present: regular rate, systolic murmur, +S3, +S4 - Abdominal Exam Abdominal exam: Present: soft - Extremities Exam Extremities exam: Present: other (bilat 4plus edema ). Absent: calf tenderness - Neurological Exam Neurological exam: Present: oriented X3, CN II-XII intact. Absent: motor sensory deficit - Psychiatric Psychiatric exam: Present: other (lethargic) - Skin Skin exam: Absent: rash
[2018-01-07 19:44] LABS: Appearance,Urine CLEAR (Clear); Blood, Urine TRACE-L (Negative); Color,Urine YELLOW (Yellow); Glucose,Urine (UA) Negative (Negative); Ketones,Urine Negative (Negative); Leukocyte Esterase,Urine Negative (Negative); Microscopic, Urine URINE MICROSCOPIC (MICROSCOPIC); PH,Urine 5.5 (5.0-8.5); Protein,Urine 1+ (Negative); Specific Gravity, Urine >= 1.030 (1.005-1.030)
[2018-01-07 19:47] LABS: Anion Gap 9.3 mEq/L (5-15); Blood Urea Nitrogen 16 mg/dL (7-18); Calcium 8.7 mg/dL (8.5-10.1); Carbon Dioxide 36 mmol/L (21.0-32.0); Chloride 99 mmol/L (98-107); Glucose 146 mg/dL (74-106); Potassium 4.3 mmoL/L (3.5-5.1); Sodium 140 mmol/L (136-145)
[2018-01-07 19:51] LABS: Bilirubin,Urine 1+ (Negative)
[2018-01-07 19:52] LABS: Amorphous Sediment,Urine 1+ /lpf; Mucus,Urine 4+ /lpf
[2018-01-07 19:56] LABS: Eosinophils % 1 % (0-3); Lymphocytes % 6 % (10-50); Macrocytosis 1+; Monocytes % 4 % (2-9); Neutrophils % 77 % (42-76); Rouleaux 1+; Total Cells Counted 100
[2018-01-08 04:30] LABS: Hematocrit 35.7 % (42.0-52.0); Hemoglobin 10.9 g/dL (14.1-18.0); Mean Corpuscular HGB Conc 30.4 g/dL (31.8-35.4); Mean Corpuscular Hemoglobin 30.2 pg (27.0-31.2); Mean Corpuscular Volume 99.1 fl (80-94); White Blood Count 18.9 K/mm3 (4.8-10.8)
[2018-01-08 04:31] LABS: Eosinophils # 0.1 K/mm3 (0.0-0.4); Eosinophils % 0.4 % (0.1-12.0); Lymphocytes # 0.9 K/mm3 (0.7-4.5); Lymphocytes % 4.6 K/mm3 (10-50); Mean Platelet Volume 8.3 fl (7.4-10.4); Monocytes # 0.3 K/mm3 (0.1-1.0); Monocytes % 1.3 % (1.7-9.3); Neutrophils # 17.8 K/mm3 (1.8-7.8); Neutrophils % 93.7 % (37.0-80.0); Platelet Count 218 K/mm3 (142-424); Red Cell Distribution Width 13.3 % (11.5-17.5)
[2018-01-08 04:46] LABS: Anion Gap 5.5 mEq/L (5-15); Blood Urea Nitrogen 22 mg/dL (7-18); Calcium 8.5 mg/dL (8.5-10.1); Carbon Dioxide 35 mmol/L (21.0-32.0); Chloride 100 mmol/L (98-107); Glucose 160 mg/dL (74-106); Potassium 4.5 mmoL/L (3.5-5.1); Sodium 136 mmol/L (136-145)
[2018-01-08 04:50] LABS: Tobramycin,Random 10.2 ug/ml
[2018-01-08 04:57] LABS: Lymphocytes % 6 % (10-50); Macrocytosis 1+; Monocytes % 1 % (2-9); Neutrophils % 77 % (42-76); Rouleaux 1+; Total Cells Counted 100
[2018-01-08 06:24] LABS: ABG Base Excess 9.8 mmol/L (-2.4-2.3); ABG HCO3 37.3 mmhg (22.0-26.0); ABG Oxygen Saturation 95 % (90-100); ABG PH 7.23 mmol/L (7.35-7.45); ABG PO2 79.7 mmhg (80-100)
[2018-01-08 06:25] LABS: Oxygen 40 %; Tidal Volume 869
[2018-01-08 06:26] LABS: Allen's Test UNABLE
[2018-01-08 06:28] LABS: ABG PCO2 90.2 mmhg (35.0-45.0)
--- NOTE | 2018-01-08 08:08 | Pharmacy Consult Notes ---
[facility] Pharmacy VTE Monitoring - Patient Demographics Admission date: 01/07/18 Report Date: 01/08/18 Time: 08:08 Allergies/Adverse Reactions: Patient Allergies No Known Allergies Allergy (Verified 01/07/18 21:07) Height: 1.88 m Weight: 151.216 kg Patient Problems: Current Active Problems Acute respiratory failure (Acute) Leukocytosis (Acute) Acute exacerbation of chronic obstructive airways disease (Acute) Congestive heart failure (Acute) Overweight (Acute) - VTE Risk Labs: VTE Related Lab Results Hgb 10.9 g/dL (14.1-18.0) L 01/08/18 04:10 Hct 35.7 % (42.0-52.0) L 01/08/18 04:10 Plt Count 218 K/mm3 (142-424) 01/08/18 04:10 BUN 22 mg/dL (7-18) H D 01/08/18 04:10 Creatinine 1.59 mg/dL (0.70-1.30) H D 01/08/18 04:10 Estimated Creat Clear 51 mL/min (0-300) 01/08/18 04:10 Was VTE Risk Assessment Performed: Yes VTE Score: 6 VTE Risk Level: Moderate Risk - Prophylaxis VTE Prophylaxis Ordered?: Yes Types of VTE Prophylaxis: TEDS Knee High Location of Applied Device: Bilateral Lower Extremeties - VTE Diagnosis Confirmed Treatment or plan recommended: Continue Current Treatment
--- NOTE | 2018-01-08 08:27 | History & Physical Report ---
*Admission Date: 01/07/18 *Chief complaint: Shortness of air and swelling *History of present illness: 67-year-old white male with long history of COPD, significant diastolic CHF, hypercapnia with chronic respiratory failure and CO2 retention, who has been prescribed BiPAP in the past but has refused this because of the cost of the BiPAP device through his insurance co-pay. Over the past couple of months he has been under the care of home health agency and they have under my direction increased his dietary P as well oxygen therapy at home with minimal improvement in his pulmonary and pedal edema symptoms. Brought to the emergency department yesterday where he was found to have respiratory acidosis with hypercapnia, relative hypoxia and edema in his feet as well as breathlessness and pickwickian features. Interestingly his creatinine was normal. He was admitted to stepdown unit for BiPAP therapy, higher dose Lasix and close cardiac and pulmonary monitoring. [facility] History I have reviewed the patient's past medical history: Yes Medical History: Reports:: Congestive Heart Failure (Diastolic dysfunction with fairly preserved ejection fraction), Chronic Obstructive Pulmonary Disease (COPD ), Home Oxygen, Hypertension, Peripheral Vascular Disease Denies:: Cancer, Diabetes Mellitus Type 1, Diabetes Mellitus Type 2, MRSA Other Medical History: Reports: Liver Disease Comment: Left heart cath done 5 months ago with fairly clear coronary arteries, significant diastolic dysfunction but fairly preserved ejection fraction of 40- 45% range. Laterality Cases: Left: ACL Repair, Other, Bilateral: Carpal Tunnel Release Other Surgeries: Yes: Cardiac Catheterization Amputation: No Fractures: No - *Social History Smoking Status: Former smoker Tobacco Type: cigarettes Alcohol Intake: former Substance Use Type: former substance user, marijuana, crack/cocaine Occupational Status: disabled Housing: house Household Members: children - Psychiatric History Expresses thoughts of harming self/others: None Suicide Plan Description: No Plan *Family Hx:: Cancer Review of Systems - Review of Systems Review of systems:: pertinent systems reviewed and negative unless documented below - Constitutional Reports daytime sleepiness, Reports lack of energy, Denies increased appetite - Eyes Denies blind spots, Denies blurry vision - *Cardiovascular Reports shortness of breath, Reports shortness of breath with activity, Reports leg swelling, Reports shortness of breath when lying down, Denies chest pain, Denies chest pain at rest, Denies irregular heart rhythm - *Respiratory Reports cough, Reports shortness of breath, Reports shortness of breath with activity, Denies change in phlegm color, Denies chest congestion - *Gastrointestinal Denies abdominal pain, Denies belching, Denies bloating - *Genitourinary Denies difficulty urinating - *Musculoskeletal Reports abnormal walking, Reports back pain, Reports joint swelling, Reports limited joint movement, Reports body aches, Reports neck pain - *Neurologic Denies headache(s), Denies seizure-like activity Meds Home Medications Medication Instructions Recorded Confirmed Type Acetaminophen with Codeine 1 tab PO TIDP PRN 11/24/17 01/07/18 History [Tylenol with Codeine #3 tablet] Carvedilol [Carvedilol 12.5mg Tab] 12.5 mg PO BID 11/24/17 01/07/18 History Diclofenac Potassium [Diclofenac 50 mg PO DAILY 11/24/17 01/07/18 History 50mg Tab] Gabapentin [Neurontin 600mg 600 mg PO TID 11/24/17 01/07/18 History tablet] Sacubitril/Valsartan [Entresto 1 tab PO BID 11/24/17 01/07/18 History 24/26mg Tablet] Spironolactone [Spironolactone 50 mg PO BID 11/24/17 01/07/18 History 50mg Tab] Allergies Allergy/AdvReac Type Severity Reaction Status Date / Time No Known Allergies Allergy Verified 01/07/18 21:07 Exam Vital signs and Labs for Last 24 Hours: Temp Pulse Resp BP Pulse Ox 97.8 F 66 20 112/51 96 01/08/18 04:19 01/08/18 06:00 01/08/18 00:00 01/08/18 06:00 01/08/18 06:00 Laboratory Results - last 24 hr 01/07/18 19:25: WBC 16.6 H, RBC 3.52 L, Hgb 11.8 L, Hct 34.5 L, MCV 97.9 H, MCH 33.4 H, MCHC 34.2, RDW 13.4, Plt Count 236, MPV 8.0, Neut % (Auto) 87.7 H, Lymph % (Auto) 6.5 L, [place] % (Auto) 4.7, Eos % (Auto) 0.8, Baso % (Auto) 0.3, Neut # (Auto) 14.5 H, Lymph # (Auto) 1.1, [place] # (Auto) 0.8, Eos # (Auto) 0.1, Baso # (Auto) 0.1, Total Counted 100, Neutrophils % (Manual) 77 H, Band Neutrophils % 12.0 H, Lymphocytes % (Manual) 6 L, Monocytes % (Manual) 4, Eosinophils % (Manual) 1, Platelet Estimate Normal, Macrocytosis 1+, Rouleaux 1+ 01/07/18 19:25: Sodium 140, Potassium 4.3, Chloride 99, Carbon Dioxide 36 H, Anion Gap 9.3, BUN 16, Creatinine 1.02, Estimated Creat Clear 79, Estimated GFR 72, Est GFR ( Amer) 88, Glucose 146 H, Calcium 8.7, Troponin I < 0.02 01/07/18 19:25: B-Natriuretic Peptide 117 H 01/07/18 19:25: Lactic Acid 1.4 01/07/18 19:25: Ammonia 48 01/07/18 19:33: Specimen Source L/r, O2 % 3, ABG pH 7.25 L, ABG pCO2 90.2 H, ABG pO2 63.5 L, ABG HCO3 38.3 H, ABG Total CO2 41.1 H, ABG O2 Saturation 91, ABG Base Excess 11.0 H, [place] Test Y 01/07/18 19:38: Urine Color Yellow, Urine Appearance Clear, Urine pH 5.5, Ur Specific [place] >= 1.030, Urine Protein 1+, Urine Glucose (UA) Negative, Urine Ketones Negative, Urine Blood Trace-l, Urine Nitrate Negative, Urine Bilirubin 1 + A, Urine Urobilinogen 1.0, Ur Leukocyte Esterase Negative, Urine RBC 3-5, Urine WBC 3-5, Amorphous Sediment 1+, Hyaline Casts 5-10, Urine Mucus 4+ 01/07/18 22:30: Troponin I < 0.02 01/08/18 01:20: Troponin I < 0.02 01/08/18 04:10: Sodium 136, Potassium 4.5, Chloride 100, Carbon Dioxide 35 H, Anion Gap 5.5, BUN 22 H D, Creatinine 1.59 H D, Estimated Creat Clear 51, Estimated GFR 43 L, Est GFR ( Amer) 52 L D, Glucose 160 H, Calcium 8.5, Troponin I < 0.02, Random Tobramycin 10.2 01/08/18 04:10: WBC 18.9 H, RBC 3.60 L, Hgb 10.9 L, Hct 35.7 L, MCV 99.1 H, MCH 30.2, MCHC 30.4 L, RDW 13.3, Plt Count 218, MPV 8.3, Neut % (Auto) 93.7 H, Lymph % (Auto) 4.6 L, [place] % (Auto) 1.3 L, Eos % (Auto) 0.4, Baso % (Auto) 0.0 L , Neut # (Auto) 17.8 H, Lymph # (Auto) 0.9, [place] # (Auto) 0.3, Eos # (Auto) 0.1 , Baso # (Auto) 0.0, Total Counted 100, Neutrophils % (Manual) 77 H, Band Neutrophils % 16.0 H, Lymphocytes % (Manual) 6 L, Monocytes % (Manual) 1 L, Platelet Estimate Normal, Macrocytosis 1+, [place] 1+ 01/08/18 06:00: Specimen Source Right radial, O2 % 40, ABG pH 7.23 L*, ABG pCO2 90.2 H, ABG pO2 79.7 L, ABG HCO3 37.3 H, ABG Total CO2 40.0 H, ABG O2 Saturation 95, ABG Base Excess 9.8 H, Ref[place] Test Unable, Vent Rate 20, Tidal Volume 869 I & O for Last 24 hours: Intake & Output 01/05/18 01/06/18 01/07/18 01/08/18 11:59 11:59 11:59 11:59 Output Total 95 / 95 Balance -95 / -95 Weight 333 lb 6 oz Narrative: Patient on BiPAP, fairly comfortable with normal heart rate and blood pressure. His edema in his feet is actually better over his baseline admissions. Lungs have diminished air movement and rhonchi throughout his lung wood. Exam is difficult because of his significant obesity and body habitus. Heart rate is regular. Abdomen is protuberant and swollen. No pitting of the abdominal wall. Able to move his arms and legs symmetrically. H&P: Result - Labs Labs: Short CBC 01/07/18 01/08/18 Range/Units 19:25 04:10 WBC 16.6 H 18.9 H (4.8-10.8) K/mm3 Hgb 11.8 L 10.9 L (14.1-18.0) g/dL Hct 34.5 L 35.7 L (42.0-52.0) % Plt Count 236 218 (142-424) K/mm3 BMP 01/07/18 01/08/18 19:25 04:10 Sodium 140 136 Potassium 4.3 4.5 Chloride 99 100 Carbon Dioxide 36 H 35 H BUN 16 22 H D Creatinine 1.02 1.59 H D Glucose 146 H 160 H Calcium 8.7 8.5 Cardiac Enzymes 01/07/18 01/07/18 01/08/18 Range/Units 19:25 22:30 01:20 Troponin I < 0.02 < 0.02 < 0.02 (0.00-0.06) ng/ml 01/08/18 Range/Units 04:10 Troponin I < 0.02 (0.00-0.06) ng/ml Urine 01/07/18 Range/Units 19:38 Urine Color Yellow (Yellow) Urine Appearance Clear (Clear) Urine pH 5.5 (5.0-8.5) Ur Specific [place] >= 1.030 (1.005-1.030) Urine Protein 1+ (Negative) Urine Glucose (UA) Negative (Negative) Assessment and Plan (1) Acute exacerbation of chronic obstructive airways disease Current visit: Yes Status: Acute Category: Medical Code(s): J44.1 - Chronic obstructive pulmonary disease with (acute) exacerbation Broad-spectrum antibiotics given previous Haemophilus influenza infection and high risk of colonization, Pseudomonas coverage. (2) Acute respiratory failure Current visit: Yes Status: Acute Qualifiers: Respiratory failure complication: hypercapnia Qualified Code(s): J96.02 - Acute respiratory failure with hypercapnia Category: Medical Code(s): J96.00 - Acute respiratory failure, unspecified whether with hypoxia or hypercapnia Currently on BiPAP. Follow closely. Patient's blood gas has not really improved much. (3) Congestive heart failure Current visit: Yes Status: Acute Qualifiers: Heart failure type: unspecified Heart failure chronicity: acute on chronic Qualified Code(s): I50.9 - Heart failure, unspecified Category: Medical Code(s): I50.9 - Heart failure, unspecified Repeat echocardiogram today. High-dose Lasix. (4) COPD exacerbation Current visit: No Status: Acute Category: Medical Code(s): J44.1 - Chronic obstructive pulmonary disease with (acute) exacerbation (5) Chronic combined systolic and diastolic CHF (congestive heart failure) Current visit: No Status: Acute Category: Medical Code(s): I50.42 - Chronic combined systolic (congestive) and diastolic (congestive) heart failure Overall patient's disease burden is significant. If patient does not respond to aggressive Lasix therapy, BiPAP and possible medicine adjustments based on echocardiogram reading would consider hospice referral.
--- NOTE | 2018-01-08 15:58 | Pharmacy Consult Notes ---
- Pharmacy Consult Date: 01/08/18 Time: 15:52 Referring provider: DR. MARIE Reason for Consult:: TOBRAMYCIN DOSING AND LEVELS Allergies and ADEs:: Allergies Allergy/AdvReac Type Severity Reaction Status Date / Time No Known Allergies Allergy Verified 01/07/18 21:07 Home Medications:: Home Medications Medication Instructions Recorded Confirmed Type Acetaminophen with Codeine 2 tab PO TIDP PRN 11/24/17 01/08/18 History [Tylenol with Codeine #3 tablet] Carvedilol [Carvedilol 12.5mg Tab] 12.5 mg PO BID 11/24/17 01/07/18 History Diclofenac Potassium [Diclofenac 50 mg PO BID 11/24/17 01/08/18 History 50mg Tab] Gabapentin [Neurontin 600mg 600 mg PO TID 11/24/17 01/07/18 History tablet] Sacubitril/Valsartan [Entresto 1 tab PO BID 11/24/17 01/07/18 History 24/26mg Tablet] Budesonide/Formoterol Fumarate 2 puffs INHALATION BID 01/08/18 01/08/18 History [Symbicort 160-4.5 Mcg Inhaler] Spironolactone [Aldactone 50mg Tab] 50 mg PO BID 01/08/18 01/08/18 History Height: 1.88 m Weight: 151.216 kg Laboratory Results:: Laboratory Results - last 24 hr 01/07/18 19:25: WBC 16.6 H, RBC 3.52 L, Hgb 11.8 L, Hct 34.5 L, MCV 97.9 H, MCH 33.4 H, MCHC 34.2, RDW 13.4, Plt Count 236, MPV 8.0, Neut % (Auto) 87.7 H, Lymph % (Auto) 6.5 L, [place] % (Auto) 4.7, Eos % (Auto) 0.8, Baso % (Auto) 0.3, Neut # (Auto) 14.5 H, Lymph # (Auto) 1.1, [place] # (Auto) 0.8, Eos # (Auto) 0.1, Baso # (Auto) 0.1, Total Counted 100, Neutrophils % (Manual) 77 H, Band Neutrophils % 12.0 H, Lymphocytes % (Manual) 6 L, Monocytes % (Manual) 4, Eosinophils % (Manual) 1, Platelet Estimate Normal, Macrocytosis 1+, Rouleaux 1+ 01/07/18 19:25: Sodium 140, Potassium 4.3, Chloride 99, Carbon Dioxide 36 H, Anion Gap 9.3, BUN 16, Creatinine 1.02, Estimated Creat Clear 79, Estimated GFR 72, Est GFR ( Amer) 88, Glucose 146 H, Calcium 8.7, Troponin I < 0.02 01/07/18 19:25: B-Natriuretic Peptide 117 H 01/07/18 19:25: Lactic Acid 1.4 01/07/18 19:25: Ammonia 48 01/07/18 19:33: Specimen Source L/r, O2 % 3, ABG pH 7.25 L, ABG pCO2 90.2 H, ABG pO2 63.5 L, ABG HCO3 38.3 H, ABG Total CO2 41.1 H, ABG O2 Saturation 91, ABG Base Excess 11.0 H, Reufgio Test Y 01/07/18 19:38: Urine Color Yellow, Urine Appearance Clear, Urine pH 5.5, Ur Specific [place] >= 1.030, Urine Protein 1+, Urine Glucose (UA) Negative, Urine Ketones Negative, Urine Blood Trace-l, Urine Nitrate Negative, Urine Bilirubin 1 + A, Urine Urobilinogen 1.0, Ur Leukocyte Esterase Negative, Urine RBC 3-5, Urine WBC 3-5, Amorphous Sediment 1+, Hyaline Casts 5-10, Urine Mucus 4+ 01/07/18 22:30: Troponin I < 0.02 01/08/18 01:20: Troponin I < 0.02 01/08/18 04:10: Sodium 136, Potassium 4.5, Chloride 100, Carbon Dioxide 35 H, Anion Gap 5.5, BUN 22 H D, Creatinine 1.59 H D, Estimated Creat Clear 51, Estimated GFR 43 L, Est GFR ( Amer) 52 L D, Glucose 160 H, Calcium 8.5, Troponin I < 0.02, Random Tobramycin 10.2 01/08/18 04:10: WBC 18.9 H, RBC 3.60 L, Hgb 10.9 L, Hct 35.7 L, MCV 99.1 H, MCH 30.2, MCHC 30.4 L, RDW 13.3, Plt Count 218, MPV 8.3, Neut % (Auto) 93.7 H, Lymph % (Auto) 4.6 L, [place] % (Auto) 1.3 L, Eos % (Auto) 0.4, Baso % (Auto) 0.0 L , Neut # (Auto) 17.8 H, Lymph # (Auto) 0.9, [place] # (Auto) 0.3, Eos # (Auto) 0.1 , Baso # (Auto) 0.0, Total Counted 100, Neutrophils % (Manual) 77 H, Band Neutrophils % 16.0 H, Lymphocytes % (Manual) 6 L, Monocytes % (Manual) 1 L, Platelet Estimate Normal, Macrocytosis 1+, Rouleaux 1+ 01/08/18 06:00: Specimen Source Right radial, O2 % 40, ABG pH 7.23 L*, ABG pCO2 90.2 H, ABG pO2 79.7 L, ABG HCO3 37.3 H, ABG Total CO2 40.0 H, ABG O2 Saturation 95, ABG Base Excess 9.8 H, [place] Test Unable, Vent Rate 20, Tidal Volume 869 01/08/18 13:20: Random Tobramycin 4.2 Medical History: Reports:: Congestive Heart Failure (Diastolic dysfunction with fairly preserved ejection fraction), Chronic Obstructive Pulmonary Disease (COPD ), Home Oxygen, Hypertension, Peripheral Vascular Disease Denies:: Cancer, Diabetes Mellitus Type 1, Diabetes Mellitus Type 2, MRSA Assessment and Plan (1) Acute exacerbation of chronic obstructive airways disease Current visit: Yes Status: Acute Category: Medical Code(s): J44.1 - Chronic obstructive pulmonary disease with (acute) exacerbation (2) Acute respiratory failure Current visit: Yes Status: Acute Qualifiers: Respiratory failure complication: hypercapnia Qualified Code(s): J96.02 - Acute respiratory failure with hypercapnia Category: Medical Code(s): J96.00 - Acute respiratory failure, unspecified whether with hypoxia or hypercapnia (3) Congestive heart failure Current visit: Yes Status: Acute Qualifiers: Heart failure type: unspecified Heart failure chronicity: acute on chronic Qualified Code(s): I50.9 - Heart failure, unspecified Category: Medical Code(s): I50.9 - Heart failure, unspecified (4) COPD exacerbation Current visit: No Status: Acute Category: Medical Code(s): J44.1 - Chronic obstructive pulmonary disease with (acute) exacerbation (5) Chronic combined systolic and diastolic CHF (congestive heart failure) Current visit: No Status: Acute Category: Medical Code(s): I50.42 - Chronic combined systolic (congestive) and diastolic (congestive) heart failure - Assessment and plan all Dx Assessment and Plan for all problems:: BASED ON PATIENT'S FACTORS, RECOMMENDED PATIENT START ON TOBRAMYCIN 500 MG Q24H OVERNIGHT. TOBRAMYCIN LEVELS AT 5 AND 14 HRS POST INFUSION WERE OBTAIN AT 10.2 MCG/ML AND 4.2 MCG/ML, RESPECTIVELY. CALCULATED CMAX OF 13.3 MCG/ML AND CMIN 1.72 MCG/ML. RECOMMEND CONTINUING WITH TOBRAMYCIN 500 MG Q36H AT THIS TIME STARTING AT 0900 IN THE AM, 01/09. PHARMACY WILL FOLLOW DAILY AND ADJUST APPROPRIATE. SADE MELO, PHARMD
--- NOTE | 2018-01-08 20:22 | Cardiology Report ---
PROCEDURE: 2-D M-mode and color Doppler study INDICATIONS FOR THE TEST: Chest pain COPD+ Heart Murmur Tobacco Smoking Palpitations Fatigue Syncope Edema+ Hypertension+Diabetes Mellitus Rheumatic Fever SOB DE Obesity+Hyperlipidemia Family History HD Additional History CHF, HOME O2, BIPAP, OLD ECHO 40-45%, DEFINITY CONTRAST USED, LIMITED IMAGES. PATIENT INFORMATION HEIGHT: 74 WEIGHT:333 GENDER: Male B/P:112/51 2-D/M-MODE INTERPRETATION: 2-D MEASUREMENTS OBSERVED VALUES IN CMS Right Ventricular Dimension (RVDd) Interventricular Septum (Thickness)(IVsd) Left Ventricular Internal Dimensions(LVIDd) Left Ventricular Posterior Wall (Thickness)(LVPWd) Aortic Root 3.7 Aortic Cusp Separation Left Atrial Dimensions (LAD) 4.1 2D 1. Limited difficult and poor study despite Definity contrast used. 2. Probably preserved left ventricular systolic function. 3. The valvular structures are not well visualized. 4. No pericardial effusion seen DOPPLER INTERROGATION: Doppler interrogation is suboptimal CONCLUSION: 1. Technically very poor study as described above 2. Probably preserved left ventricular systolic function 3. The valvular structures are not well visualized this study 4. No significant pericardial effusion noted
[2018-01-09 06:49] LABS: Basophils % 0.2 % (0.1-2.0); Eosinophils # 0.1 K/mm3 (0.0-0.4); Eosinophils % 0.6 % (0.1-12.0); Hematocrit 38.7 % (42.0-52.0); Hemoglobin 11.6 g/dL (14.1-18.0); Lymphocytes # 2.1 K/mm3 (0.7-4.5); Lymphocytes % 10.3 K/mm3 (10-50); Mean Corpuscular Hemoglobin 29.9 pg (27.0-31.2); Mean Corpuscular Volume 99.6 fl (80-94); Mean Platelet Volume 8.3 fl (7.4-10.4); Monocytes # 0.8 K/mm3 (0.1-1.0); Neutrophils # 17.4 K/mm3 (1.8-7.8); Neutrophils % 84.9 % (37.0-80.0); Platelet Count 301 K/mm3 (142-424); Red Blood Count 3.89 M/mm3 (4.60-6.20); Red Cell Distribution Width 13.4 % (11.5-17.5); White Blood Count 20.5 K/mm3 (4.8-10.8)
[2018-01-09 07:21] LABS: Albumin Level 2.9 gm/dL (3.4-5.0); Albumin/Globulin Ratio 0.8 (1.1-1.8); Anion Gap 9.6 mEq/L (5-15); Bilirubin,Total 0.3 mg/dL (0.2-1.0); Calcium 8.2 mg/dL (8.5-10.1); Globulin 3.8 gm/dl (1.3-3.2); Potassium 4.6 mmoL/L (3.5-5.1); Total Protein,Serum 6.7 gm/dL (6.4-8.2)
--- NOTE | 2018-01-09 07:43 | Progress Note ---
Internal Medicine - PN: Subj *Date: 01/09/18 *Time: 07:30 Interval history: Patient states "I don't feel any better." Continues to have shortness of breath and productive cough. Alert and oriented x3. Rate and rhythm regular. Scattered wheezes and rhonchi, diminished air flow. Abdomen soft and nontender. 2+ BLE edema Exam Vital signs and Labs for Last 24 Hours: Temp Pulse Resp BP Pulse Ox 97.8 F 75 24 103/59 100 01/09/18 04:00 01/09/18 04:00 01/09/18 04:00 01/09/18 04:00 01/09/18 04:00 Laboratory Results - last 24 hr 01/08/18 13:20: Random Tobramycin 4.2 01/09/18 06:30: WBC 20.5 H*, RBC 3.89 L, Hgb 11.6 L, Hct 38.7 L, MCV 99.6 H, MCH 29.9, MCHC 30.0 L, RDW 13.4, Plt Count 301 D, MPV 8.3, Neut % (Auto) 84.9 H , Lymph % (Auto) 10.3, [place] % (Auto) 4.0, Eos % (Auto) 0.6, Baso % (Auto) 0.2, Neut # (Auto) 17.4 H, Lymph # (Auto) 2.1, [place] # (Auto) 0.8, Eos # (Auto) 0.1, Baso # (Auto) 0.0 01/09/18 06:30: Sodium 139, Potassium 4.6, Chloride 101, Carbon Dioxide 33 H, Anion Gap 9.6, BUN 43 H D, Creatinine 2.70 H D, Estimated Creat Clear 30, Estimated GFR 24 L, Est GFR ( Amer) 28 L D, Glucose 119 H, Calcium 8.2 L , Total Bilirubin 0.3, AST 20, ALT 22, Alkaline Phosphatase 65, Total Protein 6.7, Albumin 2.9 L, Globulin 3.8 H, Albumin/Globulin Ratio 0.8 L I & O for Last 24 hours: Intake & Output 01/06/18 01/07/18 01/08/18 01/09/18 11:59 11:59 11:59 11:59 Intake Total 2244 / 2244 Output Total 95 / 95 1700 / 1700 Balance -95 / -95 544 / 544 Weight 333 lb 6 oz 340 lb 4 oz Microbiology Reports for the Last 24 Hours: Microbiology 01/07/18 19:42 Sputum - Expectorated Sputum Gram Stain - Final Assessment and Plan (1) Acute exacerbation of chronic obstructive airways disease Current visit: Yes Status: Acute Category: Medical Code(s): J44.1 - Chronic obstructive pulmonary disease with (acute) exacerbation (2) Acute respiratory failure Current visit: Yes Status: Acute Qualifiers: Respiratory failure complication: hypercapnia Qualified Code(s): J96.02 - Acute respiratory failure with hypercapnia Category: Medical Code(s): J96.00 - Acute respiratory failure, unspecified whether with hypoxia or hypercapnia (3) Congestive heart failure Current visit: Yes Status: Acute Qualifiers: Heart failure type: unspecified Heart failure chronicity: acute on chronic Qualified Code(s): I50.9 - Heart failure, unspecified Category: Medical Code(s): I50.9 - Heart failure, unspecified (4) COPD exacerbation Current visit: No Status: Acute Category: Medical Code(s): J44.1 - Chronic obstructive pulmonary disease with (acute) exacerbation (5) Chronic combined systolic and diastolic CHF (congestive heart failure) Current visit: No Status: Acute Category: Medical Code(s): I50.42 - Chronic combined systolic (congestive) and diastolic (congestive) heart failure - Assessment and plan all Dx Assessment and Plan for all problems:: Creatinine is up this morning at 2.7. Will give NS bolus and start IVF's. Patient has overall poor rehab potential and prognosis. Discussed LTC placement and Hospice. He is not interested in either at this time. Advised that the level of care he needs is difficult to provide at home. Care management to discuss with family and patient later today.
[2018-01-09 08:32] LABS: Lymphocytes % 11 % (10-50); Monocytes % 4 % (2-9); Neutrophils % 85 % (42-76); Total Cells Counted 100
[2018-01-09 08:33] LABS: RBC Morphology Normal
[2018-01-09 18:13] LABS: Calcium 8.2 mg/dL (8.5-10.1)
[2018-01-10 08:03] LABS: Calcium 8.4 mg/dL (8.5-10.1)
--- NOTE | 2018-01-10 08:09 | Progress Note ---
Internal Medicine - PN: Subj *Date: 01/10/18 *Time: 08:07 Interval history: Patient slept fairly well overnight with no BiPAP. He has refused to work with PT services. His family had initially requested help with long-term care placement but now after discussion they wish to have him go back to home once he is feeling better. Urine output has improved with fluid administration. Exam Vital signs and Labs for Last 24 Hours: Temp Pulse Resp BP Pulse Ox 98.5 F 61 22 118/59 93 L 01/10/18 04:00 01/10/18 04:00 01/10/18 04:00 01/10/18 04:00 01/10/18 04:00 Laboratory Results - last 24 hr 01/09/18 06:30: Total Counted 100, Neutrophils % (Manual) 85 H, Lymphocytes % ( Manual) 11, Monocytes % (Manual) 4, Platelet Estimate Normal, RBC Morphology Normal 01/09/18 18:01: Sodium 139, Potassium 4.0, Chloride 102, Carbon Dioxide 33 H, Anion Gap 8.0, BUN 46 H, Creatinine 2.32 H, Estimated Creat Clear 35, Estimated GFR 28 L, Est GFR ( Amer) 34 L D, Glucose 129 H, Calcium 8.2 L 01/09/18 22:10: Stl Aeromonas (PCR) Not detected, Stl C. cayetanensis PCR Not detected, Stool Rotavirus (PCR) Not detected, Stl Adenov F 40/41 PCR Not detected, Stool Astrovirus (PCR) Not detected, Stool Campylobacter PCR Not detected, Stl C.difficile Tox PCR Not detected, Stool Cryptosporidium PCR Not detected, Stl E.coli Shiga Tox PCR Not detected, Stool E coli O157 PCR Not detected, Stl Enterotoxigenic E PCR Not detected, Stool EPEC (PCR) Not detected , Stool EAEC (PCR) Not detected, Stl E. histolytica PCR Not detected, Stool Giardia Lamblia PCR Not detected, Stool Salmonella PCR Not detected, Stool Sapovirus (PCR) Not detected, Stl P. shigelloides PCR Not detected, Stl Shigella /EIEC PCR Not detected, St Y.enterocolitica PCR Not detected, Stool Vibrio (PCR ) Not detected, Stl Vibrio cholerae PCR Not detected, Stl Norovirus GI/GII PCR Not detected I & O for Last 24 hours: Intake & Output 01/07/18 01/08/18 01/09/18 01/10/18 11:59 11:59 11:59 11:59 Intake Total 2484 / 2484 1614 / 1614 Output Total 95 / 95 1700 / 1700 2500 / 2500 Balance -95 / -95 784 / 784 -886 / -886 Weight 333 lb 6 oz 340 lb 4 oz 338 lb 9 oz Microbiology Reports for the Last 24 Hours: Microbiology 01/07/18 19:18 Blood Blood Culture - Preliminary NO GROWTH AFTER 48 HOURS 01/07/18 19:18 Blood Blood Culture - Preliminary NO GROWTH AFTER 48 HOURS Narrative: Patient has rhonchi in both lung wood with poor air movement but about the same as yesterday. He is sleeping but when awakened is alert and oriented 3. His legs are swollen but slightly better than baseline. No worse than yesterday after nights of fluid administration. Urine output has picked up nicely. Assessment and Plan (1) Acute exacerbation of chronic obstructive airways disease Current visit: Yes Status: Acute Category: Medical Code(s): J44.1 - Chronic obstructive pulmonary disease with (acute) exacerbation (2) Acute respiratory failure Current visit: Yes Status: Acute Qualifiers: Respiratory failure complication: hypercapnia Qualified Code(s): J96.02 - Acute respiratory failure with hypercapnia Category: Medical Code(s): J96.00 - Acute respiratory failure, unspecified whether with hypoxia or hypercapnia (3) Congestive heart failure Current visit: Yes Status: Acute Qualifiers: Heart failure type: unspecified Heart failure chronicity: acute on chronic Qualified Code(s): I50.9 - Heart failure, unspecified Category: Medical Code(s): I50.9 - Heart failure, unspecified (4) COPD exacerbation Current visit: No Status: Acute Category: Medical Code(s): J44.1 - Chronic obstructive pulmonary disease with (acute) exacerbation (5) Chronic combined systolic and diastolic CHF (congestive heart failure) Current visit: No Status: Acute Category: Medical Code(s): I50.42 - Chronic combined systolic (congestive) and diastolic (congestive) heart failure - Assessment and plan all Dx Assessment and Plan for all problems:: Patient overall is better. Better fluid status. Oxygenation is about the same. Continue IV fluids, if creatinine improves would consider discharge home , with home health or possibly hospice therapy depending on family's wishes and his wishes for aggressive care.
[2018-01-11 06:09] LABS: Basophils % 0.3 % (0.1-2.0); Eosinophils # 0.1 K/mm3 (0.0-0.4); Eosinophils % 0.8 % (0.1-12.0); Hematocrit 34.5 % (42.0-52.0); Hemoglobin 10.3 g/dL (14.1-18.0); Lymphocytes # 1.6 K/mm3 (0.7-4.5); Lymphocytes % 18.8 K/mm3 (10-50); Mean Corpuscular HGB Conc 29.7 g/dL (31.8-35.4); Mean Corpuscular Hemoglobin 29.4 pg (27.0-31.2); Mean Platelet Volume 8.3 fl (7.4-10.4); Monocytes # 0.6 K/mm3 (0.1-1.0); Monocytes % 6.6 % (1.7-9.3); Neutrophils # 6.2 K/mm3 (1.8-7.8); Neutrophils % 73.5 % (37.0-80.0); Platelet Count 264 K/mm3 (142-424); Red Blood Count 3.49 M/mm3 (4.60-6.20); Red Cell Distribution Width 13.5 % (11.5-17.5); White Blood Count 8.5 K/mm3 (4.8-10.8)
[2018-01-11 06:36] LABS: Albumin Level 2.4 gm/dL (3.4-5.0); Albumin/Globulin Ratio 0.7 (1.1-1.8); Anion Gap 7.7 mEq/L (5-15); Bilirubin,Total 0.2 mg/dL (0.2-1.0); Globulin 3.6 gm/dl (1.3-3.2); Potassium 3.7 mmoL/L (3.5-5.1)
--- NOTE | 2018-01-11 08:58 | Discharge Summary ---
General - General Admission date:: 01/07/18 Discharge date: 01/11/18 HPI HPI: 67-year-old white male with long history of COPD, significant diastolic CHF, hypercapnia with chronic respiratory failure and CO2 retention, who has been prescribed BiPAP in the past but has refused this because of the cost of the BiPAP device through his insurance co-pay. Over the past couple of months he has been under the care of home health agency and they have under my direction increased his dietary P as well oxygen therapy at home with minimal improvement in his pulmonary and pedal edema symptoms. Brought to the emergency department yesterday where he was found to have respiratory acidosis with hypercapnia, relative hypoxia and edema in his feet as well as breathlessness and pickwickian features. Interestingly his creatinine was normal. He was admitted to stepdown unit for BiPAP therapy, higher dose Lasix and close cardiac and pulmonary monitoring. Hospital Course Hospital Course: Patient was admitted to acute care on Bi-pap. Mental status improved over night and he was transitioned to nasal cannula. CXR showed CHF and a small infiltrate. He was given IV lasix and antibiotics. Leukocytosis has resolved. Creatinine began to climb and he was gently rehydrated with IVF's. Creatinine slowly returned to baseline. He continues to utilize Bi-pap at night. Despite aggressive treatment patient was continued to be short of breath even at rest. He has poor overall prognosis which was discussed with the patient and his family. After lengthy discussion, patient has opted to go home with Hospice. Discharge home with Hospice on Augmentin with Bipap at night and oxygen at 2L/ NC during the day for comfort. FU in one week with Dr. Balderas. Objective Vital signs: Temp Pulse Resp BP Pulse Ox 98.1 F 72 20 124/55 98 01/11/18 08:00 01/11/18 08:00 01/11/18 08:00 01/11/18 08:00 01/11/18 08:00 Narrative: Alert and oriented x3. Rate and rhythm regular. Coarse rhonchi and wheezes throughout. 2+ BLE edema. Abdomen soft and nontender Results Labs on day of discharge: Labs from last 24 hours 01/11/18 01/11/18 05:25 05:25 WBC 8.5 D RBC 3.49 L Hgb 10.3 L Hct 34.5 L MCV 99.0 H MCH 29.4 MCHC 29.7 L RDW 13.5 Plt Count 264 MPV 8.3 Neut % (Auto) 73.5 Lymph % (Auto) 18.8 [place] % (Auto) 6.6 Eos % (Auto) 0.8 Baso % (Auto) 0.3 Neut # (Auto) 6.2 Lymph # (Auto) 1.6 [place] # (Auto) 0.6 Eos # (Auto) 0.1 Baso # (Auto) 0.0 Sodium 144 Potassium 3.7 Chloride 107 Carbon Dioxide 33 H Anion Gap 7.7 BUN 34 H Creatinine 1.59 H Estimated Creat Clear 51 Estimated GFR 43 L Est GFR ( Amer) 52 L Glucose 139 H Calcium 8.0 L Total Bilirubin 0.2 AST 17 ALT 22 Alkaline Phosphatase 49 Total Protein 6.0 L Albumin 2.4 L Globulin 3.6 H Albumin/Globulin Ratio 0.7 L Preliminary micro results at discharge 01/07/18 19:18 Blood Culture - Preliminary Blood NO GROWTH AFTER 48 HOURS 01/07/18 19:18 Blood Culture - Preliminary Blood NO GROWTH AFTER 48 HOURS DS: Diagnosis - Discharge Diagnosis (1) Acute exacerbation of chronic obstructive airways disease Status: Acute (2) Acute respiratory failure Status: Acute (3) Congestive heart failure Status: Acute (4) COPD exacerbation Status: Acute (5) Chronic combined systolic and diastolic CHF (congestive heart failure) Status: Acute Discharge Plan - Patient Discharge Instructions ACTIVITY: Continue current activity DIET: continue same diet - Follow up Plan Follow up with: Jalen Balderas MD [Primary Care Provider] - 1 week Disposition: Hospice - Home Home Medications: Home Medications Medication Instructions Recorded Confirmed Type Acetaminophen with Codeine 2 tab PO TIDP PRN 11/24/17 01/08/18 History [Tylenol with Codeine #3 tablet] Carvedilol [Carvedilol 12.5mg Tab] 12.5 mg PO BID 11/24/17 01/07/18 History Diclofenac Potassium [Diclofenac 50 mg PO BID 11/24/17 01/08/18 History 50mg Tab] Gabapentin [Neurontin 600mg 600 mg PO TID 11/24/17 01/07/18 History tablet] Sacubitril/Valsartan [Entresto 1 tab PO BID 11/24/17 01/07/18 History 24/26mg Tablet] Budesonide/Formoterol Fumarate 2 puffs INHALATION BID 01/08/18 01/08/18 History [Symbicort 160-4.5 Mcg Inhaler] Prescriptions/Medication Reconciliation: New Amoxicillin/Potassium Clav [Augmentin 875-125 Tablet] 1 tab PO Q12H #14 tab Continue Gabapentin [Neurontin 600mg tablet] 600 mg PO TID Carvedilol [Carvedilol 12.5mg Tab] 12.5 mg PO BID Acetaminophen with Codeine [Tylenol with Codeine #3 tablet] 2 tab PO TIDP PRN PRN Reason: PAIN Budesonide/Formoterol Fumarate [Symbicort 160-4.5 Mcg Inhaler] 2 puffs INHALATION BID Furosemide [Furosemide 40MG tAB] 40 mg PO BID #90 tablet Changed Spironolactone [Aldactone 50mg Tab] 25 mg PO BID #30 tablet Discontinued Diclofenac Potassium [Diclofenac 50mg Tab] 50 mg PO BID Sacubitril/Valsartan [Entresto 24/26mg Tablet] 1 tab PO BID
== END 2018-01-11 13:57 | disposition hospice, home (50) ==
LOC: ER 19:07 → 2ND 19:58
PROVIDERS: ADMIT Internal Medicine Adolescent Medicine; ATTEND Internal Medicine Adolescent Medicine

== ENCOUNTER → 2019-01-29 10:31 | Outpatient (REF) | payer OTHER, SELFPAY ==
[2019-01-29 11:51] LABS: Ammonia 16 umol/L (19-54)
[2019-01-29 12:03] LABS: Anion Gap 18.6 mEq/L (5-15); Calcium 8.6 mg/dL (8.5-10.1); Carbon Dioxide 30 mmol/L (21.0-32.0); Chloride 95 mmol/L (98-107); Glucose 116 mg/dL (74-106); Potassium 5.6 mmoL/L (3.5-5.1); Sodium 138 mmol/L (136-145)
[2019-01-29 12:25] LABS: Estimated Glomerular Filt Rate 7 ml/min (>60); GFR (African American) 8 ML/MIN (>60)
[2019-01-29 12:46] LABS: Blood Urea Nitrogen 131 mg/dL (7-18); Creatinine,Serum 7.84 mg/dL (0.70-1.30)
[2019-01-29 13:51] LABS: Alanine Aminotransferase 19 U/L (12-78); Albumin Level 3.1 gm/dL (3.4-5.0); Albumin/Globulin Ratio 0.8 (1.1-1.8); Alkaline Phosphatase 73 U/L (46-116); Aspartate Amino Transferase 11 U/L (15-37); Bilirubin,Total 0.4 mg/dL (0.2-1.0); Globulin 3.9 gm/dl (1.3-3.2)
== END ==
LOC: LAB.CARL 10:31
PROVIDERS: Visit Provider Internal Medicine
DX: J44.9 Chronic obstructive pulmonary disease, unspecified (principal)
CPT/HCPCS: 80053; 82140